=== PATIENT | male | born 1980 | race Caucasian/White ===

== ENCOUNTER 2017-04-13 09:43 | Emergency (ER) | payer MEDICAID ==
[2017-04-13 09:48] VITALS: BP 126/85; PULSE 85; RESP 16; TEMP 97.7; O2SAT 96
--- NOTE | 2017-04-13 10:28 | EDPHY ---
H & P Stated Complaint: R ankle pain/swelling x 1 day;no injury "I walk a lot" Time Seen by Provider: 04/13/17 10:02 HPI/ROS: Chief Complaint: Right ankle pain HPI: The patient presents to the ED with a 1 day history of right ankle pain. The patient denies history of fall or trauma but does report walking a lot with a heavy backpack. The patient denies significant past medical history. The patient takes no regular medications. REVIEW OF SYSTEMS: Neuro: [no headache, numbness, weakness] Musculoskeletal: [as above] Skin: [no abrasion or lacerations] Source: Patient - Personal History Current Tetanus Diphtheria and Acellular Pertussis (TDAP): Yes - Medical/Surgical History Hx Asthma: No Hx Chronic Respiratory Disease: No Hx Diabetes: No Hx Cardiac Disease: No Hx Renal Disease: No Hx Cirrhosis: No Hx Alcoholism: No Hx HIV/AIDS: No Hx Splenectomy or Spleen Trauma: No Other PMH: HERNIA, ARTHRITIS, PIN NECK, ETOH/DRUG USE - Social History Smoking Status: Current every day smoker - Physical Exam Exam: General appearance: alert no distress Right ankle: There is swelling and tenderness over the distal anterior medel. Ankle joint is stable and there is no tenderness over the Achilles tendon. The foot is nontender without swelling. Neurologic exam: The patient has normal sensation and motor function distal to the injury. Vascular exam: Normal pulses and capillary refill in the foot DIFFERENTIAL DIAGNOSIS: After history and physical exam differential diagnosis was considered for ankle injury including sprain, fracture, dislocation and soft tissue injury. Constitutional: Initial Vital Signs Temperature (C) 36.5 C 04/13/17 09:46 Heart Rate 85 04/13/17 09:46 Respiratory Rate 16 04/13/17 09:46 Blood Pressure 126/85 H 04/13/17 09:46 O2 Sat (%) 96 04/13/17 09:46 O2 Delivery Mode Room Air Allergies/Adverse Reactions: methocarbamol [From Robaxin] Allergy (Severe, Verified 04/13/17 09:49) "coma" Home Medications: Medication Instructions Recorded Asenapine Maleate [Saphris] 5 mg SL 04/13/17 Medical Decision Making - Diagnostics Imaging Results: Right ankle x-ray: Images reviewed by myself, for acute fracture Right tibia fibula x-ray: Images reviewed by myself, negative for acute fracture ED Course/Re-evaluation: The patient presents to the ED with atraumatic right ankle pain which appears to be secondary to an overuse injury and mild soft tissue swelling. There is no clinical evidence of septic arthritis or intra-articular process. The patient will be advised to take ibuprofen as needed for management of his symptoms. Departure - Departure Disposition: Home, Routine, Self-Care Clinical Impression: Medel splint Condition: Good Instructions: Musculoskeletal Pain (ED) Additional Instructions: 1. Your x-ray demonstrates no evidence of an obvious fracture. 2. Take Ibuprofen or Motrin 600 mg by mouth three times a day. 3. Please follow up with your primary care provider as scheduled. Referrals: Clary Ash [Primary Care Provider] - As per Instructions
== END 2017-04-13 10:38 | disposition home or self-care (01) ==
DX: M25.571 Pain in right ankle and joints of right foot (principal); F17.200 Nicotine dependence, unspecified, uncomplicated